=== PATIENT | male | born 1955 | race Caucasian/White ===

== ENCOUNTER → 2019-05-28 | Outpatient (CLI) | payer MEDICARE, OTHER | END | disposition home or self-care (01) | LOC: PETCFH 13:06 | PROVIDERS: ATTEND Radiology Radiation Oncology | DX: C61 Malignant neoplasm of prostate (principal); R91.1 Solitary pulmonary nodule | CPT/HCPCS: 78815; A9588 ==

== ENCOUNTER 2019-05-31 06:30 | Day surgery (SDC) | payer MEDICARE, OTHER ==
[~2019-05-31] VITALS: Ht 167.6 cm; Wt 110.6 kg
[2019-05-31] MEDS ORDERED: SODIUM CHLORIDE 0.9% 1,000 ML IV SCH (07:00)
[2019-05-31 07:10] VITALS: BP 121/88
[2019-05-31] MEDS ORDERED: FENTANYL PF 100 MCG/2ML ONE (07:39)
[2019-05-31] MEDS ORDERED: MIDAZOLAM 1 MG/ML, 5ML ONE (07:40)
[2019-05-31] MEDS ORDERED: NALOXONE 1 MG/ML, 2ML ONE (07:40)
[2019-05-31] MEDS ORDERED: FLUMAZENIL 0.1 MG/1 ML, 5ML ONE (07:40)
== END 2019-05-31 15:20 | disposition home or self-care (01) ==
LOC: OUT 06:30 → EDSTATUS 08:00 → OUT 15:20
PROVIDERS: ATTEND Radiology Radiation Oncology
DX: R91.8 Other nonspecific abnormal finding of lung field (principal); C61 Malignant neoplasm of prostate; J93.9 Pneumothorax, unspecified; I10 Essential (primary) hypertension
CPT/HCPCS: 32405; 71045; 77012; 88305; 88333; 88341; 88342; 99156; 99157; J2250; J3010; J7030; J2310

== ENCOUNTER 2019-06-01 09:34 | Outpatient (CLI) | payer MEDICARE, OTHER | END 2019-06-01 23:59 | disposition home or self-care (01) | LOC: RAD 09:34 | PROVIDERS: ATTEND Radiology Diagnostic Radiology | DX: J93.9 Pneumothorax, unspecified (principal); R91.8 Other nonspecific abnormal finding of lung field; J98.11 Atelectasis; R07.9 Chest pain, unspecified | CPT/HCPCS: 71045 ==